=== PATIENT | male | born 1950 | race Caucasian/White ===

== ENCOUNTER 2022-09-26 14:10 | Day surgery (SDC) | payer MEDICARE, OTHER ==
[~2022-09-26] VITALS: Ht 182.9 cm; Wt 102.9 kg
[2022-09-26] VITALS (8 sets, daily range): BP systolic 116–132; BP diastolic 58–84
[2022-09-26] MEDS ORDERED: PANT40TA54 PO (14:35)
[2022-09-26] MEDS ORDERED: LOSA50TA64 PO (14:35)
[2022-09-26] MEDS ORDERED: ASPI81TA52 PO (14:35)
[2022-09-26] MEDS ORDERED: CARV3.122 PO (14:35)
[2022-09-26] MEDS ORDERED: normal saline 1,000 ML IV SCH (14:40)
[2022-09-26] MEDS ORDERED: diphenhydrAMINE 25mg capsule PO PRN (14:40)
[2022-09-26] MEDS ORDERED: LORazepam 0.5 MG tablet PO PRN (14:40)
[2022-09-26 15:02] LABS: BASOPHILS # (AUTO) 0.1 X10'3 (0-0.2); EOSINOPHILS # (AUTO) 0.3 X10'3 (0-0.9); EOSINOPHILS % (AUTO) 3.1 % (0-6); HEMATOCRIT 48.9 % (42.0-52.0); HEMOGLOBIN 16.8 g/dl (14.0-17.9); LYMPHOCYTES # (AUTO) 1.9 X10'3 (1.1-4.8); LYMPHOCYTES % (AUTO) 22.6 % (21-51); MEAN CORPUSCULAR HEMOGLOBIN 30.7 PG (27.0-31.0); MEAN CORPUSCULAR HGB CONC 34.4 g/dL (33.0-36.5); MEAN CORPUSCULAR VOLUME 89.2 FL (78-98); MEAN PLATELET VOLUME 7.8 FL (7.4-10.4); MONOCYTES # (AUTO) 0.9 X10'3 (0-0.9); MONOCYTES % (AUTO) 10.9 % (2-12); NEUTROPHILS # (AUTO) 5.3 X10'3 (1.8-7.7); NEUTROPHILS % (AUTO) 62.4 % (42-75); PLATELET COUNT 285 X10'3 (140-440); RED BLOOD COUNT 5.49 X10'6 (4.70-6.10); RED CELL DISTRIBUTION WIDTH 13.9 % (11.5-14.5); WHITE BLOOD COUNT 8.5 X10'3 (4.5-11.0)
[2022-09-26] MEDS ORDERED: iohexol 350MG/ML 100ml bottle IV ONE (15:03)
[2022-09-26] MEDS ORDERED: fentaNYL/PF 50MCG/1 ML 2ML syringe ONE (15:03)
[2022-09-26] MEDS ORDERED: LIDOcaine 1% (10mg/ml)w/preservative inj. 20ml MDV ONE (15:03)
[2022-09-26] MEDS ORDERED: midazolam 1 mg/ML 2ml injection ONE (15:05)
[2022-09-26 15:14] LABS: ALBUMIN 3.9 G/DL (3.4-5.0); ANION GAP 12 (8-16); BLOOD UREA NITROGEN 17 MG/DL (7-18); BUN/CREATININE RATIO 10.7 (10.0-20.0); CALCIUM 8.6 MG/DL (8.5-10.1); CHLORIDE 102 MMOL/L (99-107); CREATININE 1.59 MG/DL (0.60-1.10); GLUCOSE 107 MG/DL (70-104); POTASSIUM 3.6 MMOL/L (3.5-5.1); SODIUM 137 MMOL/L (135-145); TOTAL CARBON DIOXIDE 22.8 MMOL/L (24-32); eGFR 43 ML/MIN
[2022-09-26] MEDS ORDERED: OXAZEpam 15mg capsule PO PRN (16:50)
[2022-09-26] MEDS ORDERED: proCHLORperazine 10 MG/2 ml inj IV PRN (16:50)
[2022-09-26] MEDS ORDERED: ondansetron/PF 4mg/2ml inj IV PRN (16:50)
[2022-09-26] MEDS ORDERED: nitroGLYCERIN 0.4mg SUBLingual tab SL PRN (16:50)
[2022-09-26] MEDS ORDERED: HYDROcodone/acetaminophen 10/325mg tab PO PRN (16:50)
[2022-09-26] MEDS ORDERED: HYDROcodone/acetaminophen 5mg/325mg tablet PO PRN (16:50)
== END 2022-09-26 19:50 | disposition home or self-care (01) ==
LOC: SSTAY O 14:10
PROVIDERS: ATTEND Student in an Organized Health Care Education/Training Program
DX: I25.710 Atherosclerosis of autologous vein coronary artery bypass graft(s) with unstable angina pectoris (principal); E78.5 Hyperlipidemia, unspecified; I10 Essential (primary) hypertension; G47.33 Obstructive sleep apnea (adult) (pediatric); K21.9 Gastro-esophageal reflux disease without esophagitis; Z79.82 Long term (current) use of aspirin; Z79.899 Other long term (current) drug therapy; Z88.8 Allergy status to other drugs, medicaments and biological substances
CPT/HCPCS: 36415; 80048; 85025; 85610; 93005; 93455; 99152; J1644; J2250; J3010; J3490; J7030; Q9967; 93454; 99153; A6258; C1760

== ENCOUNTER 2022-10-10 10:52 | Day surgery (SDC) | payer MEDICARE, OTHER ==
[2022-10-10] VITALS (12 sets, daily range): BP systolic 115–175; BP diastolic 69–95
[~2022-10-10] VITALS: Ht 182.9 cm; Wt 103.2 kg
[~2022-10-10 10:52] MED LIST: ASPI81TA52 PO; CARV3.122 PO; LOSA50TA64 PO; PANT40TA54 PO
[2022-10-10] MEDS ORDERED: LORazepam 0.5 MG tablet PO PRN (11:10)
[2022-10-10] MEDS ORDERED: diphenhydrAMINE 25mg capsule PO PRN (11:10)
[2022-10-10] MEDS ORDERED: normal saline 1,000 ML IV SCH (11:10)
[2022-10-10] MEDS ORDERED: ISOS60TA71 PO (11:38)
[2022-10-10] MEDS ORDERED: EZET10TA48 PO (11:38)
[2022-10-10] MEDS ORDERED: RANO10005 PO (11:38)
[2022-10-10] MEDS ORDERED: fentaNYL/PF 50MCG/1 ML 2ML syringe ONE (11:43)
[2022-10-10] MEDS ORDERED: iohexol 350MG/ML 100ml bottle IV ONE (11:43)
[2022-10-10] MEDS ORDERED: LIDOcaine 1% 30ml preserv. free vial ONE (11:43)
[2022-10-10] MEDS ORDERED: heparin 1,000unit/ml 10ml vial 10 ML ONE (11:43)
[2022-10-10] MEDS ORDERED: midazolam 1 mg/ML 2ml injection ONE (11:43)
[2022-10-10 11:53] LABS: BASOPHILS # (AUTO) 0.1 X10'3 (0-0.2); BASOPHILS % (AUTO) 1.4 % (0-1); EOSINOPHILS # (AUTO) 0.2 X10'3 (0-0.9); EOSINOPHILS % (AUTO) 3.1 % (0-6); HEMATOCRIT 48.1 % (42.0-52.0); HEMOGLOBIN 16.3 g/dl (14.0-17.9); LYMPHOCYTES # (AUTO) 1.9 X10'3 (1.1-4.8); LYMPHOCYTES % (AUTO) 25.8 % (21-51); MEAN CORPUSCULAR HEMOGLOBIN 30.4 PG (27.0-31.0); MEAN CORPUSCULAR HGB CONC 33.8 g/dL (33.0-36.5); MEAN CORPUSCULAR VOLUME 90.1 FL (78-98); MEAN PLATELET VOLUME 8.1 FL (7.4-10.4); MONOCYTES # (AUTO) 0.6 X10'3 (0-0.9); MONOCYTES % (AUTO) 8.8 % (2-12); NEUTROPHILS # (AUTO) 4.5 X10'3 (1.8-7.7); NEUTROPHILS % (AUTO) 60.9 % (42-75); PLATELET COUNT 290 X10'3 (140-440); RED BLOOD COUNT 5.34 X10'6 (4.70-6.10); RED CELL DISTRIBUTION WIDTH 13.8 % (11.5-14.5); WHITE BLOOD COUNT 7.3 X10'3 (4.5-11.0)
[2022-10-10] MEDS ORDERED: nitroGLYCERIN-Tridil 50MG/D5W 250 ML IV ONE (12:20)
[2022-10-10] MEDS ORDERED: verapamil 2.5 mg/ml inj IV ONE (12:21)
[2022-10-10 12:29] LABS: ANION GAP 8 (8-16); BLOOD UREA NITROGEN 13 MG/DL (7-18); CALCIUM 8.6 MG/DL (8.5-10.1); CHLORIDE 102 MMOL/L (99-107); CREATININE 1.62 MG/DL (0.60-1.10); GLUCOSE 109 MG/DL (70-104); POTASSIUM 4.2 MMOL/L (3.5-5.1); SODIUM 134 MMOL/L (135-145); TOTAL CARBON DIOXIDE 23.7 MMOL/L (24-32); eGFR 42 ML/MIN
[2022-10-10] MEDS ORDERED: ticagrelor 90mg tablet ONE (12:38)
[2022-10-10] MEDS ORDERED: nitroGLYCERIN 0.4mg SUBLingual tab SL ONE (12:49)
[2022-10-10] MEDS ORDERED: morphine 2 MG/ML inj. syringe ONE (12:51)
[2022-10-10] MEDS ORDERED: ondansetron/PF 4mg/2ml inj IV PRN (14:00)
[2022-10-10] MEDS ORDERED: OXAZEpam 15mg capsule PO PRN (14:00)
[2022-10-10] MEDS ORDERED: proCHLORperazine 10 MG/2 ml inj IV PRN (14:00)
[2022-10-10] MEDS ORDERED: HYDROcodone/acetaminophen 5mg/325mg tablet PO PRN (14:00)
[2022-10-10] MEDS ORDERED: nitroGLYCERIN 0.4mg SUBLingual tab SL PRN (14:00)
[2022-10-10] MEDS ORDERED: HYDROcodone/acetaminophen 10/325mg tab PO PRN (14:00)
[2022-10-10] MEDS ORDERED: morphine 2 MG/ML inj. syringe IV PRN (15:05)
[2022-10-10] MEDS ORDERED: hydrALAZINE 20mg/ml inj. IV ONE (16:16)
== END 2022-10-10 17:05 | disposition home or self-care (01) ==
LOC: SSTAY O 10:52
PROVIDERS: ATTEND Student in an Organized Health Care Education/Training Program
DX: I25.110 Atherosclerotic heart disease of native coronary artery with unstable angina pectoris (principal); I12.9 Hypertensive chronic kidney disease with stage 1 through stage 4 chronic kidney disease, or unspecified chronic kidney disease; N18.30 Chronic kidney disease, stage 3 unspecified; E78.5 Hyperlipidemia, unspecified; K21.9 Gastro-esophageal reflux disease without esophagitis; Z79.82 Long term (current) use of aspirin; Z79.899 Other long term (current) drug therapy; Z88.8 Allergy status to other drugs, medicaments and biological substances
CPT/HCPCS: 36415; 80048; 85025; 85610; 92921; 93005; 99152; 99153; C1725; C1751; C1874; C9600; J1644; J2250; J2270; J3010; J3490; J7030; Q0163; Q9967; 92920; A4620; A6258; A6402; C1894